=== PATIENT | female | born 1985 | race Caucasian/White ===

== ENCOUNTER 2019-05-28 13:08 | Emergency (ER) | payer OTHER, SELFPAY ==
--- NOTE | ~2019-05-28 | US_ITS ---
EXAMINATION: US OB <= 14 weeks fetus DATE: 05/28/2019 15:00 INDICATION: Left pelvic pain. Spotting. TECHNIQUE: Real-time transabdominal pelvic ultrasound was performed. COMPARISON: None. FINDINGS: The uterus measures 10.9 x 8.1 x 8.9 cm. There is an intrauterine gestational sac. A yolk sac is iden tified. The crown rump length measures 2.8 cm, which correlates with an estimated gestational age of 9 weeks and 4 day(s) (+/-) 6 day(s). heart motion is identified measuring 179 beats per minute (bpm) by M-mode Doppler. There are 2 small subchorionic hematomas. The right ovary is not visu alized. The left ovary measures 2.1 x 1.8 x 2.4 cm. There is no free fluid in the pelvis. IMPRESSION: 1. Single living intrauterine gestation with estimated date of delivery of 12/27/2019. 2. Two small subchorionic hematomas. Reviewed, dictated and finalized at location A. UCT SAFETY HEAD IMPRESSION: 1. Single living intrauterine gestation with estimated date of delivery of 12/13. 2. Two small subchorionic hematomas.
[2019-05-28 13:16] VITALS: BP 134/86; PULSE 98; RESP 16; TEMP 37.5; O2SAT 100
[2019-05-28 13:38] LABS: Basophils Absolute Auto 0.1 K/mm3 (0.0-0.1); Basophils Percent Auto 0.7 % (0.2-1.2); Eosinophils Absolute Auto 0.1 K/mm3 (0-0.3); Eosinophils Percent Auto 1.1 % (0-4.4); Hematocrit 29.4 % (37.0-47.0); Hemoglobin 8.5 g/dL (12.0-15.0); Immature Granulocyte Absolute 0.03 K/mm3 (0.00-0.031); Immature Granulocyte Percent A 0.3 % (0-0.5); Immature Platelet Fraction Pct 10.2 % (0.9-11.2); Lymphocytes Absolute Auto 1.95 K/mm3 (0.9-3.2); Lymphocytes Percent Auto 22.4 % (18.3-44.2); Mean Corpuscular HGB Conc 28.9 g/dl (32-36); Mean Corpuscular Hemoglobin 20.2 pg (26-34); Mean Corpuscular Volume 69.8 fl (80-100); Monocytes Absolute Auto 0.4 K/mm3 (0.1-0.6); Monocytes Percent Auto 4.9 % (2.6-8.5); Neutrophils Absolute Auto 6.2 K/mm3 (1.3-6.7); Neutrophils Percent Auto 70.6 % (45.5-73.1); Platelet Count Result 237 k/mm3 (150-375); Red Blood Count 4.21 M/mm3 (4.2-5.4); Red Cell Distribution Width 21.2 % (11.5-14.5); White Blood Count 8.7 K/mm3 (4.5-10.0)
--- NOTE | 2019-05-28 14:04 | ED.ABDPAIN ---
HPI - Abdominal Pain General Chief Complaint: Vaginal Bleeding Stated Complaint: abd pain after fall, Time Seen by Provider: 05/28/19 13:57 Source: patient and RN notes reviewed Mode of arrival: ambulatory Limitations: no limitations History of Present Illness HPI narrative: Pt is a 33 y/o female presenting to the ED c/o ABD pain secondary to fall. Pt reports she was getting out of a van earlier today when she fell and landed on her lt sided lower ABD earlier today. Pt states she then started experiencing vaginal bleeding about 20 minutes later. Pt notes she is currently about 2 months based on her LMP. Pt state she has some vaginal spotting about 12 days ago that lasted a week before resolving after being administered medications. Pt states she has not yet had an US of her Pelvis, and notes Hx's of G5 with one miscarriage. Pt notes she has a Hx of significant anemia at baseline. Pt also reports lt knee pain, but denies N/V. Pertinent past history: other (Currently ) Onset (ago): unknown (Earlier today) Location: LLQ Associated symptoms: other (Vaginal bleeding; Lt knee pain) Related Data Allergies Allergy/AdvReac Type Severity Reaction Status Date / Time No Known Allergies Allergy Verified 05/28/19 15:49 Review of Systems Review of Systems: All systems reviewed & are unremarkable except as noted in HPI and below Gastrointestinal: Gastrointestinal: Reports abdominal pain (LLQ), Denies nausea and Denies vomiting Genitourinary: Genitourinary: Reports abnormal vaginal bleeding Musculoskeletal: Musculoskeletal: Denies other (Lt knee pain) PMFSH Past Medical History Medical History Anemia Surgical History Surgical History No significant past surgical history Social History Social History Smoking status: Unknown if ever smoked Gender identity (if verbalized by the patient): Female Exam Const: General: healthy appearing, no acute distress and alert Nutritional Appearance: well nourished Other: Gravid HENMT: Mouth: Yes lip normal Eyes: Conjunctivae: conjunctivae normal Resp: Effort & Inspection: normal respiratory effort Auscultation: clear to auscultation bilaterally Cardio: Rate: regular rate Rhythm: regular rhythm GI: GI Palp: Yes Soft to palpation and Yes Tenderness to palpation present (GI) (LLQ) Back/Spine/Pelvis: Other: Full ROM Skin: General skin exam: normal color Other: Warm; Dry Neuro: General: patient oriented x3 Speech: normal speech Extrem: General: full ROM Psych: Mental Status: mental status grossly normal Affect: normal affect Course Vital Signs Vital signs: Vital Signs Temperature 37.5 C 05/28/19 13:16 Pulse Rate 98 05/28/19 13:16 Respiratory Rate 16 05/28/19 13:16 Blood Pressure 134/86 05/28/19 13:16 Pulse Oximetry 100 05/28/19 13:16 Temperature 37.5 C 05/28/19 13:16 Pulse Rate 82 05/28/19 16:03 Respiratory Rate 16 05/28/19 16:03 Blood Pressure 128/88 05/28/19 16:03 Pulse Oximetry 98 05/28/19 16:03 MDM - Abdominal Pain MDM Narrative Medical decision making narrative: US shows 9 week with 2 small areas of subchorionic hematoma. This is most likely source of bleeding. She is significantly anemic, but givne what she told me and the lab findings it seems to be chronic not related to blood loss. She should be safe for discharge and outpatient follow-up. I would contact her OB, but he has refused to return pages in the past. I will start her on vitamins with iron. Differential Diagnosis Differential diagnosis: Likely other (miscarriage, subchorionic hematoma, other) Medical Records Attestation: I reviewed the patient's medical records. Lab Data Attestation: I reviewed the patient's lab results. Result diagrams: 05/28/19 13:23
[2019-05-28 16:03] VITALS: BP 128/88; PULSE 82; RESP 16; O2SAT 98
== END 2019-05-28 16:00 ==
PROVIDERS: Emergency Provider Emergency Medicine
DX: O99.011 Anemia complicating pregnancy, first trimester (principal); D64.9 Anemia, unspecified; O36.8910 Maternal care for other specified fetal problems, first trimester, not applicable or unspecified; Z3A.09 9 weeks gestation of pregnancy; W17.89XA Other fall from one level to another, initial encounter
CPT/HCPCS: 36415; 76801; 84702; 85025; 85055; 99284

== ENCOUNTER 2020-11-07 19:59 | Observation (INO) | payer OTHER, SELFPAY ==
[2020-11-07] VITALS (14 sets, daily range): BP systolic 93–118; BP diastolic 53–84; PULSE 71–131; RESP 13–20; TEMP 36.4–37; O2SAT 100
--- NOTE | ~2020-11-07 | US_ITS ---
EXAMINATION: US pelvic complete DATE: 11/07/2020 23:01 INDICATION: Vaginal bleeding, concern for retained products of conception. TECHNIQUE: Multiple transabdominal and endovaginal sonographic images of the pelvis were obtained. COMPARISON: None. FINDINGS: The uterus measures 15.2 x 7.8 x 7.5 cm. The endometrial complex measures 28 mm and is hete rogeneous in appearance. No intrauterine gestational sac is identified. The cervix is also enlarged a nd heterogeneous in appearance, finding of unclear significance. The right ovary measures 2.0 x 1.3 x 1.9 cm. The left ovary measures 2.0 x 1.3 x 1.5 cm. There is normal vascular flow in the ovaries. Th ere is no free fluid in the pelvis. IMPRESSION: 1. Thickened and heterogeneous endometrial complex which could reflect products of conception. 2. Apparent enlargement of the cervix of unclear significance. Reviewed, dictated and finalized at location A.
--- NOTE | 2020-11-07 20:41 | ECG_ITS ---
Measurements Intervals [place] Rate: 112 P: 85 W[place]: 112 QRS: 85 QRSD: 90 T: 38 QT: 319 QTc: 436 Interpretive Statements SINUS TACHYCARDIA WITH SHORT WY INTERVAL POSSIBLE RIGHT ATRIAL ENLARGEMENT LEFT ATRIAL ENLARGEMENT MINIMAL Q WAVES- INF/LAT LEADS BORDERLINE ST-T WAVE ABNORMALITY- INFERIOR LEADS BASELINE ARTIFACT- II, III, AVR, AVL, AVF, V1, V3-V6 ABNORMAL ECG Electronically Signed On 11-08-2020 16:11:15 CDT by Jaswinder Brower D.O.
--- NOTE | 2020-11-07 20:48 | ED.FEMALEGU ---
HPI - Female Genitourinary General Chief complaint: Vaginal Bleeding Stated complaint: miscarriage yesterday, vaginal bleeding with clots Time Seen by Provider: 11/07/20 20:46 Source: patient Mode of arrival: wheelchair Limitations: no limitations History of Present Illness HPI Narrative: Patient is a 34 year female who presents reporting miscarriage yesterday. Patient reports that she did not know she was and passed a fetus the size of a fist . Patient reports her last menstrual period was possibly 8 to 12 weeks ago, however, she reports irregular cycles. She reports heavy vaginal bleeding since miscarriage, and reports bleeding through 2 pads in the past hour. Patient is cool and pale at this time, mucous membranes pale. MD elicited complaint: vaginal bleeding Related Data Allergies Allergy/AdvReac Type Severity Reaction Status Date / Time No Known Allergies Allergy Verified 11/07/20 20:55 Review of Systems Review of Systems: Narrative: CONSTITUTIONAL: Denies fever, chills, or sweats. EYES: Denies visual changes, redness, or discharge. ENT: Denies rhinorrhea, congestion, sore throat, or otalgia. CARDIOVASCULAR: Denies chest pain, palpitations, or edema. RESPIRATORY: Denies cough or dyspnea. GASTROINTESTINAL: Denies abdominal pain, nausea, vomiting, or diarrhea. GENITOURINARY: Reports vaginal burning, miscarriage SKIN: Denies rash or itching. MUSCULOSKELETAL: Denies back pain, joint pain, or myalgia. NEUROLOGIC: Denies headache, numbness, dizziness, or weakness. PSYCHIATRIC: Denies anxiety or depression. [facility], [facility] Past Medical History Medical History Anemia Drug abuse Methamphetamine abuse Surgical History Surgical History No significant past surgical history Social History Social History Smoking status: Current every day smoker Alcohol intake: current Alcohol use details: Occasional Substance use: current Substance use type: methamphetamine Living arrangements: with family Gender identity (if verbalized by the patient): Female Comments At the time of signature, I have reviewed and agree with nursing past medical, surgical, social, and family history unless otherwise noted. Please see nursing chart for further information. There is no relevant family history pertinent to the presenting complaint. Exam Narrative: Exam Narrative: GENERAL: Well-appearing, well-nourished, and in no acute distress. HEAD: Normocephalic, atraumatic. EYES: EOMI. No redness or drainage. Conjunctiva are normal. ENT: Mucous membranes pale. CHEST: No respiratory distress. Clear to auscultation. HEART: Regular rate and rhythm. No murmur appreciated. Normal peripheral pulses. GI: Soft, nontender without rebound, or guarding. No distention. Bowel sounds normal in all quadrants. : Pelvic exam completed, patient actively bleeding at this time, unable to visualize cervix due to bleeding and patient is uncooperative with pelvic exam. MUSCULOSKELETAL: No bony tenderness. EXTREMITIES: Normal range of motion. No edema. SKIN: Warm, dry, no rash. NEURO: No focal deficits. Alert and oriented x3. Gait steady. PSYCH: Normal affect. No signs of depression or anxiety. Course Vital Signs Vital signs: Vital Signs Pulse Rate 131 H 11/07/20 20:42 Respiratory Rate 20 11/07/20 20:42 Blood Pressure 93/73 L 11/07/20 20:42 Pulse Oximetry 100 11/07/20 20:42 Temperature 36.8 C 11/07/20 23:03 Pulse Rate 71 11/07/20 23:03 Respiratory Rate 17 11/07/20 23:03 Blood Pressure 115/81 11/07/20 23:03 Pulse Oximetry 100 11/07/20 23:03 Reviewed MDM - Female Genitourinary MDM Narrative Medical decision making narrative: Patient's hemaglobin is 3.9. Patient tachycardic and hypertensive upon arrival. Patient receiving 2 units of blood at this ti
[2020-11-07] MEDS: SODIUM CHLORIDE 0.9% IV 2,000 ML 999 ML IV CONT (20:56)
--- NOTE | 2020-11-07 21:17 | PC.NURSE ---
Phlebotomy at bedside for lab draw.
[2020-11-07 21:24] LABS: Basophils Percent Auto 0.1 % (0.2-1.2); Eosinophils Absolute Auto 0.1 K/mm3 (0-0.3); Eosinophils Percent Auto 0.3 % (0-4.4); Immature Granulocyte Absolute 0.09 K/mm3 (0.00-0.031); Immature Granulocyte Percent A 0.6 % (0-0.5); Lymphocytes Absolute Auto 1.38 K/mm3 (0.9-3.2); Lymphocytes Percent Auto 9.4 % (18.3-44.2); Mean Corpuscular HGB Conc 28.1 g/dl (32-36); Mean Corpuscular Hemoglobin 18.6 pg (26-34); Mean Corpuscular Volume 66.2 fl (80-100); Monocytes Absolute Auto 0.6 K/mm3 (0.1-0.6); Monocytes Percent Auto 3.9 % (2.6-8.5); Neutrophils Absolute Auto 12.6 K/mm3 (1.3-6.7); Neutrophils Percent Auto 85.7 % (45.5-73.1); Platelet Count Result 170 k/mm3 (150-375); Red Cell Distribution Width 20.2 % (11.5-14.5); White Blood Count 14.7 K/mm3 (4.5-10.0)
[2020-11-07] MEDS: SODIUM CHLORIDE 0.9% IV 1,000 ML 999 ML (21:36)
[2020-11-07 21:37] LABS: Hemoglobin 3.9 g/dL (12.0-15.0)
[2020-11-07 21:38] LABS: Hematocrit 13.9 % (37.0-47.0)
[2020-11-07 22:11] LABS: Alanine Aminotransferase 8 U/L (4-35); Albumin Level 2.1 g/dL (3.5-5.1); Alkaline Phosphatase 48 U/L (38-126); Anion Gap 7 mmol/L (8-16); Aspartate Amino Transferase 12 U/L (14-36); Bilirubin,Total 0.2 mg/dL (0.2-1.3); Blood Urea Nitrogen 12 mg/dL (7-17); Calcium 6.8 mg/dL (8.4-10.2); Carbon Dioxide 15 mmol/L (22-30); Chloride 112 mmol/L (98-107); Estimated Glomerular Filt Rate > 60; Glucose 143 mg/dL (65-110); Sodium 134 mmol/L (137-145)
[2020-11-07 22:14] LABS: INR 1.4; Partial Thromboplastin Time 27.9 SECONDS (22.3-36.8); Prothrombin Time 16.6 Seconds (11.1-14.7)
--- NOTE | 2020-11-07 22:15 | PC.NURSE ---
Pt transported from Rm 22 to Rm 13 per ED charge. Report given to Janelle LOZANO. Pt supine on stretcher, alert, VSS. Blood products infusing.
--- NOTE | 2020-11-07 22:53 | WPDANESEPP ---
Anes - Eval Pre Procedure Procedure: D an C Date/Time: 11/07/20 22:53 Surgeon: Angelo Preop Diagnosis: Bleeding Pre Op Diagnosis: miscarriage yesterday, vaginal bleeding with clots Patient Data Age: 34 Gender: F Height: Weight: Last Vital Signs Temp 98.0 F 11/07/20 22:47 Pulse 72 11/07/20 22:47 Resp 18 11/07/20 22:47 BP 116/83 11/07/20 22:47 Pulse Ox 100 11/07/20 22:47 Allergies Allergy/AdvReac Type Severity Reaction Status Date / Time No Known Allergies Allergy Verified 11/07/20 20:55 Home Medications Medication Instructions Recorded Confirmed Type prenat.vits,akin,[id number] 1 tablet PO DAILY #30 tablet 05/28/19 Rx Laboratory Tests 11/07/20 11/07/20 11/07/20 21:17 21:17 21:17 WBC 14.7 K/mm3 H K/mm3 (4.5-10.0) RBC 2.10 M/mm3 L M/mm3 (4.2-5.4) Hgb 3.9 g/dL L* D g/dL (12.0-15.0) Hct 13.9 % L* % (37.0-47.0) MCV 66.2 fl L fl (80-100) MCH 18.6 pg L pg (26-34) MCHC 28.1 g/dl L g/dl (32-36) RDW 20.2 % H % (11.5-14.5) Plt Count 170 k/mm3 k/mm3 (150-375) MPV 11.0 fl H fl (7.4-10.4) Immature Gran % (Auto) 0.6 % H % (0-0.5) Neut % (Auto) 85.7 % H % (45.5-73.1) Lymph % (Auto) 9.4 % L % (18.3-44.2) [place] % (Auto) 3.9 % % (2.6-8.5) Eos % (Auto) 0.3 % % (0-4.4) Baso % (Auto) 0.1 % L % (0.2-1.2) Lymph # (Auto) 1.38 K/mm3 K/mm3 (0.9-3.2) [place] # (Auto) 0.6 K/mm3 K/mm3 (0.1-0.6) Eos # (Auto) 0.1 K/mm3 K/mm3 (0-0.3) Baso # (Auto) 0.0 K/mm3 K/mm3 (0.0-0.1) Abs Immat Gran (auto) 0.09 K/mm3 H K/mm3 (0.00-0.031) Absolute Neuts (auto) 12.6 K/mm3 H K/mm3 (1.3-6.7) Absolute Nucleated RBC 0.0 K/mm3 K/mm3 (0.0-0.012) Nucleated RBC % 0.0 % % (0.0-0.2) PT 16.6 Seconds H Seconds (11.1-14.7) INR 1.4 APTT 27.9 SECONDS SECONDS (22.3-36.8) Sodium 134 mmol/L L mmol/L (137-145) Potassium 4.0 mmol/L mmol/L (3.4-5.0) Chloride 112 mmol/L H mmol/L (98-107) Carbon Dioxide 15 mmol/L L mmol/L (22-30) Anion Gap 7 mmol/L L mmol/L (8-16) BUN 12 mg/dL mg/dL (7-17) Creatinine 0.70 mg/dL mg/dL (0.7-1.0) Estim Creat Clear Calc Not Reportable Estimated GFR > 60 (59 - ) Glucose 143 mg/dL H mg/dL (65-110) Calcium 6.8 mg/dL L mg/dL (8.4-10.2) Total Bilirubin 0.2 mg/dL mg/dL (0.2-1.3) AST 12 U/L L U/L (14-36) ALT 8 U/L U/L (4-35) Alkaline Phosphatase 48 U/L U/L (38-126) Total Protein 4.0 g/dL L g/dL (6.3-8.2) Albumin 2.1 g/dL L g/dL (3.5-5.1) Beta HCG, Quant 997.09 mIU/ML mIU/ML Blood Type Antibody Screen Crossmatch 11/07/20 11/07/20 21:18 21:18 WBC RBC Hgb Hct MCV MCH MCHC RDW Plt Count MPV Immature Gran % (Auto) Neut % (Auto) Lymph % (Auto) [place] % (Auto) Eos % (Auto) Baso % (Auto) Lymph # (Auto) [place] # (Auto) Eos # (Auto) Baso # (Auto) Abs Immat Gran (auto) Absolute Neuts (auto) Absolute Nucleated RBC Nucleated RBC % PT INR APTT Sodium Potassium Chloride Carbon Dioxide Anion Gap BUN Creatinine Estim Creat Clear Calc Estimated GFR Glucose Calcium Total Bilirubin AST ALT Alkaline Phosphatase Total Protein Albumin Beta HCG, Quant Blood Type
--- NOTE | 2020-11-07 23:16 | PM.IMHP ---
H&P: HPI History of Present Illness Date/Time: 11/07/20 23:16 34-year-old female 7 para 4 0 now 3 4 presents without passing of early fetus yesterday during the day with bright vaginal bright red vaginal bleeding after that which she states has increased today. Continues with clotting and heavy vaginal bleeding. Does feel lightheaded but otherwise ambulating without any significant issues. She has had no care and has seen Dr. Steven in the past. Chief Complaint: Miscarriage and bleeding. Review of Systems Review of Systems: All systems reviewed & are unremarkable except as noted in HPI and below PMFSH Past Medical History Medical History Anemia Drug abuse Methamphetamine abuse Surgical History Surgical History No significant past surgical history Social History Social History Smoking status: Current every day smoker Alcohol intake: current Alcohol use details: Occasional Substance use: current Substance use type: methamphetamine Living arrangements: with family Gender identity (if verbalized by the patient): Female Meds Home Medications and Allergies Home Medications Medication Instructions Recorded Confirmed Type prenat.vits,akin,[id number]-[id number]-[id number] 1 tablet PO DAILY #30 tablet 05/28/19 Rx Allergies Allergy/AdvReac Type Severity Reaction Status Date / Time No Known Allergies Allergy Verified 11/07/20 20:55 Vital Signs Vital Signs - 24 hr 11/07/20 20:42 11/07/20 21:04 11/07/20 21:36 Temperature Pulse Rate 131 H 98 107 H Respiratory Rate 20 18 16 Blood Pressure 93/73 L 101/53 L 116/65 Pulse Oximetry 100 100 11/07/20 21:55 11/07/20 22:07 11/07/20 22:16 Temperature 37.0 C 36.5 C 36.7 C Pulse Rate 100 87 81 Respiratory Rate 20 17 13 Blood Pressure 117/59 L 117/74 107/79 Pulse Oximetry 100 100 100 11/07/20 22:20 11/07/20 22:33 11/07/20 22:39 Temperature 36.4 C 36.4 C 36.4 C Pulse Rate 74 73 76 Respiratory Rate 19 18 20 Blood Pressure 110/76 118/78 117/73 Pulse Oximetry 100 100 100 11/07/20 22:47 11/07/20 22:53 11/07/20 23:03 Temperature 36.7 C 36.8 C 36.8 C Pulse Rate 72 74 71 Respiratory Rate 18 19 17 Blood Pressure 116/83 108/77 115/81 Pulse Oximetry 100 100 100 Exam Const: General: ill appearing, lethargic and poor hygiene Resp: Effort & Inspection: normal respiratory effort Cardio: Rate: tachycardic Rhythm: regular rhythm : Speculum Exam - Cervix: Cervical os open Bimanual exam- vagina & uterus: enlarged Bimanual Exam- Adnexa, other: normal adnexae H&P: Results Labs Labs: Short CBC 11/07/20 Range/Units 21:17 WBC 14.7 H (4.5-10.0) K/mm3 Hgb 3.9 L* D (12.0-15.0) g/dL Hct 13.9 L* (37.0-47.0) % Plt Count 170 (150-375) k/mm3 BMP 11/07/20 21:17 Sodium 134 L Potassium 4.0 Chloride 112 H Carbon Dioxide 15 L BUN 12 Creatinine 0.70 Glucose 143 H Calcium 6.8 L Liver Function 11/07/20 Range/Units 21:17 Total Bilirubin 0.2 (0.2-1.3) mg/dL AST 12 L (14-36) U/L ALT 8 (4-35) U/L Alkaline Phosphatase 48 (38-126) U/L Albumin 2.1 L (3.5-5.1) g/dL Assessment and Plan Assessment and plan (1) Vaginal bleeding: Code(s): N93.9 - Abnormal uterine and vaginal bleeding, unspecified Status: Acute (2) Anemia: Code(s): D64.9 - Anemia, unspecified Status: Acute (3) Retained products of conception after miscarriage: Code(s): O03.4 - Incomplete spontaneous without complication Status: Acute Additional Plan 1. Patient will receive 4units packed red blood cells due to her severe anemia 2. We will proceed with suction curettage for removal of retained products of conception 3. Will admit the patient overnight and will be seen in the morning and disch
--- NOTE | 2020-11-07 23:22 | WPDHPUPDATE1 ---
History and Physical Update Update Date/Time: 11/07/20 23:22 History and Physical has been reviewed, including an updated exam of the patient. There are NO changes in the patient's condition. Risks, benefits, and alternatives have been discussed and questions answered. Patient agrees to proceed with procedure.
[2020-11-07] MEDS: ceFAZolin SODIUM 1 GM VIAL 2 GM IV PUSH (23:46)
[2020-11-07] MEDS: LACTATED RINGERS 1,000 ML 30 ML IV CONT (23:59)
[2020-11-08] VITALS (26 sets, daily range): BP systolic 97–125; BP diastolic 45–74; PULSE 62–97; RESP 14–20; TEMP 36.2–37.2; O2SAT 96–100
--- NOTE | 2020-11-08 00:03 | PM.OP ---
Procedure Note - Brief Procedure Note - Brief Date of procedure: 11/08/20 Pre-op diagnosis: miscarriage yesterday, vaginal bleeding with clots Post-op diagnosis: same Procedure performed: 1. Examination under anesthesia 2. Suction curettage Description of procedure: patient prepped in usual manner for this procedure by manual exam with a large uterus with placental fragments at the cervix which were readily delivered mostly appearing to be in total. Suction curette was then performed with a moderate amount of retained products after this. Bimanual exam revealed firm uterus with minimal bleeding. At this point the procedure was considered terminated. Anesthesia: GLMA Surgeon: Ricco Stephens MD Estimated blood loss (mL): 100 IV fluids (mL): 600 Urine output (mL): 50 Drains: No Packing: No Pathology: yes Complications: No immediate complications Condition: stable Disposition: PACU Findings: Placenta was noted at the cervical os and removed by bimanual exam. Minimal retained clots and tissue on suction curettage.
--- NOTE | 2020-11-08 00:12 | WPDANESEFPP ---
Anes - Eval Final PreProcedure Day of Procedure 11/08/20 00:12 Patient weight: normal Heart: tachycardia Lungs: decreased breath sounds Airway: Mallampati scale class II Neurological: other (alert) Last oral intake: >/= 8 hours ASA classification: III Emergent: yes Anesthetic plan: proceed Anesthesia type and monitoring: general GIVS and standard monitoring Other findings: exam per SCOTTIE Informed Consent: The patient's anesthetic plan and its attendant risks and benefits were discussed with the patient/family/POA. Questions were solicited and answers provided to the satisfaction of the patient/family/POA.
--- NOTE | 2020-11-08 03:15 | SUR.PHASEI ---
25mcg of Fent given at 1227. RN forgot to document in MAR under phase 1 before precessing the transfer.
--- NOTE | 2020-11-08 03:33 | ADMGEN ---
This patient, Jessica Luis, was admitted to 3 [facility] Surg Room 304-01. Patient/family oriented to hospital policies and general routines including ID bracelet, bed and alarms, visiting hours, pain management, procedures, bathroom and other care routines, personal items, smoking policy, room service/diet, and visiting hours. Information on how to activate the Rapid Response Team has been discussed. Patient/Family are encouraged to report perceived risks to care and to ask questions if they do not understand what they are told or what they should do.
--- NOTE | 2020-11-08 08:51 | WPDANESPN ---
Anes - Prog Note Post-Op Date/Time: 11/08/20 08:51 Cardiovascular status: normal Respiratory status: normal Airway patency: baseline Mental status: baseline Post-Op hydration status: normal Vital Signs: Last Vital Signs Temp 37.0 C 11/08/20 08:03 Pulse 91 11/08/20 08:03 Resp 20 11/08/20 08:03 BP 115/72 11/08/20 08:03 Pulse Ox 96 11/08/20 08:03 Pain Score (VAS): 0 I/O: Intake & Output 11/07/20 11/08/20 11/08/20 23:59 07:59 15:59 Intake Total 3700 750 350 Output Total 16 50 16 Balance 3684 700 334 Laboratory Tests 11/07/20 21:17 11/07/20 21:17 11/07/20 11/07/20 11/07/20 21:17 21:17 21:17 WBC 14.7 H RBC 2.10 L Hgb 3.9 L* D Hct 13.9 L* MCV 66.2 L MCH 18.6 L MCHC 28.1 L RDW 20.2 H Plt Count 170 MPV 11.0 H Immature Gran % (Auto) 0.6 H Neut % (Auto) 85.7 H Lymph % (Auto) 9.4 L [place] % (Auto) 3.9 Eos % (Auto) 0.3 Baso % (Auto) 0.1 L Lymph # (Auto) 1.38 [place] # (Auto) 0.6 Eos # (Auto) 0.1 Baso # (Auto) 0.0 Abs Immat Gran (auto) 0.09 H Absolute Neuts (auto) 12.6 H Absolute Nucleated RBC 0.0 Nucleated RBC % 0.0 PT 16.6 H INR 1.4 APTT 27.9 Sodium 134 L Potassium 4.0 Chloride 112 H Carbon Dioxide 15 L Anion Gap 7 L BUN 12 Creatinine 0.70 Estim Creat Clear Calc Not Reportable Estimated GFR > 60 Glucose 143 H Calcium 6.8 L Total Bilirubin 0.2 AST 12 L ALT 8 Alkaline Phosphatase 48 Total Protein 4.0 L Albumin 2.1 L Beta HCG, Quant 997.09 Blood Type Antibody Screen Crossmatch 11/07/20 11/07/20 21:18 21:18 WBC RBC Hgb Hct MCV MCH MCHC RDW Plt Count MPV Immature Gran % (Auto) Neut % (Auto) Lymph % (Auto) [place] % (Auto) Eos % (Auto) Baso % (Auto) Lymph # (Auto) [place] # (Auto) Eos # (Auto) Baso # (Auto) Abs Immat Gran (auto) Absolute Neuts (auto) Absolute Nucleated RBC Nucleated RBC % PT INR APTT Sodium Potassium Chloride Carbon Dioxide Anion Gap BUN Creatinine Estim Creat Clear Calc Estimated GFR Glucose Calcium Total Bilirubin AST ALT Alkaline Phosphatase Total Protein Albumin Beta HCG, Quant Blood Type TNP O Positive Antibody Screen TNP Negative Crossmatch See Detail See Detail Post-procedural complaints: none Patient Feedback: Patient satisfied with anesthetic care.
[2020-11-08 09:00] LABS: Immature Platelet Fraction Pct 11.8 % (0.9-11.2); Mean Corpuscular HGB Conc 32.1 g/dl (32-36); Mean Corpuscular Hemoglobin 25.7 pg (26-34); Mean Platelet Volume 11.7 fl (7.4-10.4); Platelet Count Result 109 k/mm3 (150-375); Red Cell Distribution Width 21.2 % (11.5-14.5); White Blood Count 10.2 K/mm3 (4.5-10.0)
[2020-11-08] MEDS: MULTIVIT/MIN/PREN/FOL AC/IRON TABLET 1 TAB PO (10:19)
[2020-11-08] MEDS: POLYSACCHARIDE IRON COMPLEX 150 MG CAPSULE PO (10:19)
--- NOTE | 2020-11-16 14:04 | P.DS_ITS ---
DS: Admitting Diagnosis Admitting Diagnosis bleeding OB - DS: Summary OB Procedures : None OB Procedures Intrapartum: Retained placenta OB Procedures: : Curettage Peripartum Data Procedures: Procedures Operation Date: 11/07/20 23:30 Actual Procedure Side Surgeon p Suction Dilation and Curettage Not Applicable Ricco Stephens MD Time Spent with Patient Time attestation: Total time spent providing and/or coordinating discharge services: DS: Data Data Completed and Pending Completed studies during hospitalization: Pending at discharge 11/07/20 23:55 Surgical [PTH] Routine Discharge Plan Discharge Consulting providers: Ruben Paul ; Tj King ; Jaswinder Brower Discharging Clinician: Ricco Stephens Patient Disposition: Home, Self-Care Activity: as tolerated Diet: as tolerated Patient Instructions: Antibiotic Form, How to Stop Smoking (DC) Stand Alone Forms: General Discharge Information Follow-up/Referrals: Sebastien Steven MD [Physician] - 1 Week Discharge Medications: New ibuprofen 600 mg Tablet 600 mg PO Q6H PRN (Reason: Cramping) Qty: 30 RF: 0 Continued prenat.vits,akin,eub-vhnk-srcce Tablet 1 tablet PO DAILY Qty: 30 RF: 0 Date of admission: 11/08/20 00:10 Primary Care Provider: PHYSICIAN,BROADCAST PRODUCER Admitting Provider: Ricco Stephens Attending physician on admission: Ricco Stephens Condition: Stable
--- NOTE | 2020-11-17 05:03 | PM.OBDSVD ---
DS: Admitting Diagnosis Admitting Diagnosis OB - DS: Summary OB Procedures : None OB Procedures Intrapartum: Curettage and Retained placenta OB Procedures: : Transfusion Peripartum Data Procedures: Procedures Operation Date: 11/07/20 23:30 Actual Procedure Side Surgeon p Suction Dilation and Curettage Not Applicable Ricco Stephens MD Time Spent with Patient Time attestation: Total time spent providing and/or coordinating discharge services: DS: Data Data Completed and Pending Completed studies during hospitalization: Pending at discharge 11/07/20 23:55 Surgical [PTH] Routine Discharge Plan Discharge Consulting providers: Ruben Paul ; Tj King ; Jaswinder Brower Discharging Clinician: Ricco Stephens Patient Disposition: Home, Self-Care Activity: as tolerated Diet: as tolerated Patient Instructions: Antibiotic Form, How to Stop Smoking (DC) Stand Alone Forms: General Discharge Information Follow-up/Referrals: Sebastien Steven MD [Physician] - 1 Week Discharge Medications: New ibuprofen 600 mg Tablet 600 mg PO Q6H PRN (Reason: Cramping) Qty: 30 RF: 0 Continued prenat.vits,akin,[id number] Tablet 1 tablet PO DAILY Qty: 30 RF: 0 Date of admission: 11/08/20 00:10 Primary Care Provider: PHYSICIAN,INSPECTOR [employer] Admitting Provider: Ricco Stephens Attending physician on admission: Ricco Stephens Condition: Stable
== END 2020-11-08 10:55 | disposition home or self-care (01) ==
LOC: ANHED 21:25 → ANHSURGERY 23:15 → ANH3MEDSUR 11-08 03:27
PROVIDERS: Admitting Provider Obstetrics & Gynecology; Emergency Provider Nurse Practitioner; Visit Provider Obstetrics & Gynecology
PROC: 0U5B8ZZ Destruction of Endometrium, Via Natural or Artificial Opening Endoscopic (ICD-10-PCS; CPT 58563; principal; 2020-11-07 23:30)
DX: O03.4 Incomplete spontaneous abortion without complication (principal); N93.8 Other specified abnormal uterine and vaginal bleeding; R10.2 Pelvic and perineal pain
CPT/HCPCS: 59812; 36415; 36430; 76856; 80053; 84702; 85025; 85027; 85055; 85610; 85730; 86850; 86900; 86901; 86920; 88305; 93005; 96361; 96374; 99285; A9270; G0378; G0379; J0690; J1100; J2210; J2405; J2590; J2704; J3010; J7030; J7050; J7120; P9016

== ENCOUNTER 2021-01-26 18:48 | Emergency (ER) | payer OTHER, SELFPAY ==
[2021-01-26 19:10] VITALS: BP 133/57; PULSE 94; RESP 18; TEMP 36.5; O2SAT 100
--- NOTE | 2021-01-26 19:55 | ED.WOUNDLAC ---
HPI - Wound/Laceration General Chief Complaint: Wound/Laceration Stated Complaint: wound to forehead Time Seen by Provider: 01/26/21 19:40 Source: patient and RN notes reviewed Mode of arrival: ambulatory Limitations: no limitations History of Present Illness HPI narrative: This is a 35 year old female who presents for evaluation of left forehead wound. Patient states 2 days ago she developed pimple to her left fore head. She states today it has increased in size and pain. She was seen at [place] [facility] yesterday and she was prescribed doxycycline and percocet for dental issues. She describes pain has dull ache. She focal deficits, vomiting or fever. Related Data Allergies Allergy/AdvReac Type Severity Reaction Status Date / Time No Known Allergies Allergy Verified 01/26/21 19:13 Review of Systems Review of Systems: All systems reviewed & are unremarkable except as noted in HPI and below PMFSH Past Medical History Medical History Anemia Drug abuse Methamphetamine abuse Surgical History Surgical History No significant past surgical history Family History Family History (Updated 11/08/20 @ 03:47 by Dianna Don RN) Father Heart attack Social History Social History Smoking packs per day: 0.5 Smoking cigarettes per day: 10.0 Smoking status: Current every day smoker Tobacco type: cigarettes Alcohol intake: never Alcohol use details: Occasional Substance use: current Substance use type: marijuana and methamphetamine Gender identity (if verbalized by the patient): Female Spiritual care concerns: No Exam Const: General: no acute distress and alert Orientation/consciousness: patient oriented x3 HENMT: Head: other (left forehead at hairline with small wound with surround mild erythema ) Face and sinus: normal facial exam and face symmetric Mouth: Yes Normal oral and palatal mucosa present, Yes lip normal and Yes tongue normal Other: poor dentition, teeth missing Eyes: Pupils: Equal, round and reactive pupils present EOM: EOMs intact bilaterally Resp: Effort & Inspection: normal respiratory effort, not labored, no retractions and not tachypneic Skin: Other: left fore head with 3 cm area of swelling, mild erythema surround small wound, no drainage, no fluctance Neuro: General: patient oriented x3, moves all extremities and CN's II-XI intact bilaterally Gait exam (Neuro): Normal gait present Extrem: General: normal to inspection Psych: Mental Status: mental status grossly normal Affect: normal affect Course Reevaluation(s) Reevaluation #1: I Discussed with patient that she just started on doxycycline so she will continue this antibiotic along with keflex, no abscess at this time to drain. Date: 01/26/21 Time: 20:02 Vital Signs Vital signs: Vital Signs Temperature 97.7 F 01/26/21 19:10 Pulse Rate 94 01/26/21 19:10 Respiratory Rate 18 01/26/21 19:10 Blood Pressure 133/57 L 01/26/21 19:10 Pulse Oximetry 100 01/26/21 19:10 Temperature 97.7 F 01/26/21 19:10 Pulse Rate 81 01/26/21 20:22 Respiratory Rate 18 01/26/21 20:22 Blood Pressure 138/92 H 01/26/21 20:22 Pulse Oximetry 99 01/26/21 20:22 Discharge Plan Discharge Clinical Impression: Cellulitis Patient Disposition: Home, Self-Care Condition: Stable Instructions: Antibiotic Form, Cellulitis (ED) Additional Instructions: Apply warm compress to your wound to help drain. continue taking your doxycycline and start the additional antibiotic as well for wound on your face. Take ibuprofen along with your pain medication. Prescriptions: New cephalexin 500 mg capsule 500 mg PO Q6H 7 Days Qty: 28 RF: 0 No Action prenat.vits,akin,[id number] Tablet 1 tablet PO DAILY Qty: 30 RF: 0 i
[2021-01-26 20:22] VITALS: BP 138/92; PULSE 81; RESP 18; O2SAT 99
[2021-01-26] MEDS: IBUPROFEN 400 MG TABLET PO (20:25)
[2021-01-26] MEDS: CEPHALEXIN 500 MG CAPSULE PO (20:25)
--- NOTE | 2021-01-26 20:30 | PC.NURSE ---
Pain medication administered on discharge so the pain will not be re assessed on this pt.
== END 2021-01-26 20:31 | disposition home or self-care (01) ==
PROVIDERS: Emergency Provider General Practice
DX: L03.211 Cellulitis of face (principal); Z86.2 Personal history of diseases of the blood and blood-forming organs and certain disorders involving the immune mechanism; F17.210 Nicotine dependence, cigarettes, uncomplicated
CPT/HCPCS: 99283; A9270

== ENCOUNTER 2023-03-26 16:47 | Emergency (ER) | payer OTHER, SELFPAY ==
[2023-03-26 16:48] VITALS: BP 119/79; RESP 16; TEMP 36.4; O2SAT 95
[2023-03-26 16:55] VITALS: PULSE 84
--- NOTE | 2023-03-26 17:30 | ED.GENADULT ---
HPI - General Adult General Chief complaint: [employer] Stated complaint: PD REQUESTING VAGINAL VAULT SEARCH Time Seen by Provider: 03/26/23 16:58 Source: patient and police Mode of arrival: other Limitations: no limitations History of Present Illness HPI narrative: Patient is a 37 y/o female who presents to the ED via PD with c/o possible retained foreign body. Patient is currently under police custody, under arrest for an outstanding warrant. Upon being arrested, patient was found to have methamphetamines on her. She reports she had a ?line of meth pulled into a piece of paper that was in her underwear. She states the meth fell out when she was being searched. They reportedly performing imaging of the patient and thought there was a persistent FB in her vagina. Patient reports she had a tampon in, which she removed, but they were still concerned for FB. Patient reports she consents to whatever would need to be performed as she does not have any further drugs on her. She denies placing any drugs or other foreign bodies into her vagina or rectum. Denies ingesting any foreign body. Denies pain. She does complain of slight lightheadedness and weakness, reporting history of anemia requiring transfusions, recent heavy menstrual cycle. Related Data Allergies Allergy/AdvReac Type Severity Reaction Status Date / Time No Known Allergies Allergy Verified 01/26/21 19:13 Review of Systems Review of Systems: CONSTITUTIONAL: Denies fever, chills, or sweats. GASTROINTESTINAL: Denies abdominal pain, nausea, vomiting, or diarrhea. GENITOURINARY: See HPI. MUSCULOSKELETAL: Denies back pain, extremity pain, myalgia. NEUROLOGIC: See HPI. All systems reviewed & are unremarkable except as noted in HPI and below PMFSH Past Medical History Medical History Anemia Drug abuse Methamphetamine abuse Surgical History Surgical History No significant past surgical history Family History Family History Father Heart attack Social History Social History Smoking packs per day: 0.5 Smoking cigarettes per day: 10.0 Smoking status: Current every day smoker Tobacco type: cigarettes Alcohol intake: never Alcohol use details: Occasional Substance use: current Substance use type: marijuana and methamphetamine Living arrangements: with family Gender identity (if verbalized by the patient): Female Spiritual care concerns: No Exam Narrative: GENERAL: Well appearing, thin, non-toxic, in no acute distress. HEAD: Normocephalic, atraumatic. ENT: Partially edentulous. Scattered dental caries. RESPIRATORY: Airway patent, respirations nonlabored. CARDIOVASCULAR: Regular rate and rhythm without murmurs, rubs, or gallops. ABDOMINAL: Soft, nontender, nondistended. PELVIC: Unremarkable. No foreign bodies noted. No bleeding. Normal cervix. MUSCULOSKELETAL: Moves all extremities. No gross deformities. SKIN: Warm, dry, slightly pale appearing. NEURO: A&O X3. Speech clear. Cranial nerves II-XII grossly intact. Steady gait. No ataxic movements. PSYCHIATRIC: Appropriate mood and affect. Normal interaction. Course Vital Signs Vital signs: Vital Signs Temperature 97.6 F 03/26/23 16:48 Respiratory Rate 16 03/26/23 16:48 Blood Pressure 119/79 03/26/23 16:48 Pulse Oximetry 95 03/26/23 16:48 Oxygen Delivery Room Air 03/26/23 16:48 Temperature 97.6 F 03/26/23 16:48 Pulse Rate 84 03/26/23 16:55 Respiratory Rate 16 03/26/23 16:48 Blood Pressure 119/79 03/26/23 16:48 Pulse Oximetry 95 03/26/23 16:48 Oxygen Delivery Room Air 03/26/23 16:48 Medical Decision Making MDM Narrative Medical decision making narrative: Patient presented to ED under PD custody wi
[2023-03-26 18:08] LABS: Hematocrit 29.2 % (37.0-47.0); Hemoglobin 7.6 g/dL (12.0-15.0)
== END 2023-03-26 18:45 ==
PROVIDERS: Emergency Provider Physician Assistant
DX: Z03.823 Encounter for observation for suspected inserted (injected) foreign body ruled out (principal); D64.9 Anemia, unspecified; F17.200 Nicotine dependence, unspecified, uncomplicated; F15.10 Other stimulant abuse, uncomplicated
CPT/HCPCS: 36415; 85014; 85018; 99284